=== PATIENT | male | born 1955 | race Caucasian/White ===

== ENCOUNTER 2018-05-09 07:47 | Day surgery (SDC) | payer MEDICARE ==
[~2018-05-09] VITALS: Ht 180.3 cm; Wt 107.4 kg
[2018-05-09] VITALS (18 sets, daily range): BP systolic 109–168; BP diastolic 56–110; Ht 180.3 cm; Wt 107.4 kg
[~2018-05-09 07:47] MED LIST: KEPPRA500 MG PO; NORVASC2.5 MG PO; PROZAC20 MG PO; TASIGNA PO
[2018-05-09 08:20] LABS: BASOPHILS 0.5 % (0-2); EOSINOPHILS 3.4 % (0-7); HEMATOCRIT 46.8 % (42.0-54.0); HEMOGLOBIN 16.2 g/dL (13.5-17.5); IMMATURE GRANULOCYTES 0.1 % (0-5); LYMPHOCYTES 17.1 % (15-50); MCH 30.8 pg (26.0-34.0); MCHC 34.6 g/dL (31.0-37.0); MEAN PLATELET VOLUME 11.3 fL (7.4-10.4); MONOCYTES 9.5 % (2-11); NEUTROPHILS 69.4 % (40-80); PLATELET COUNT 248 10x3/uL (130-400); RBC 5.26 10x6/uL (4.20-6.10); RDW 14.7 % (11.5-14.5); WBC 8.3 10x3/uL (4.8-10.8)
[2018-05-09 08:25] LABS: APTT 29.7 SECONDS (22.8-39.4); PROTIME 12.7 SECONDS (11.6-15.0)
[2018-05-09] MEDS ORDERED: SEROQUEL100 MG PO (14:48)
[2018-05-09] MEDS ORDERED: MINIPRESS2 MG PO (14:49)
[2018-05-10] VITALS (12 sets, daily range): BP systolic 85–153; BP diastolic 57–103
[2018-05-10] MEDS ORDERED: NORCO 10-325 TA1 TAB PO (10:49)
--- NOTE | 2018-06-04 10:06 | OP ---
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 SURGEON: Laurel Raymond MD DESCRIPTION OF TECHNIQUE: After induction of general endotracheal anesthesia, the patient was positioned supine on the operating table. Neck was prepped and draped in usual sterile fashion. Fluoroscopic x-ray and freer localized the C5-C6 interspace. After infiltration of 1:100,000 epinephrine with 1% lidocaine, a transverse skin incision was carried out from the midline to the sternocleidomastoid muscle. The platysma was divided with Bovie cautery. Using blunt and sharp dissection with Metzenbaum scissors, I proceeded in avascular plane medial to the carotid sheath. The C5-C6 and C6-C7 interspaces were identified with fluoroscopic x-ray and spinal needle. The longus colli muscles were elevated from the bodies of C5, C6, and C7. A self-retaining retractor was placed deep to the longus colli muscles. [place] distracting pins were placed by the C5, C6, and C7. Each disc space was incised with #11 blade. The disc material was removed with pituitary rongeurs and curettes. The bony endplates were exposed with curettes. Posteriorly, the osteophytes were removed with the Midas-Manuel drill and a microscope. The posterior longitudinal ligament was removed with Cloward rongeurs. Following this, the dura was decompressed well. PEEK interbody cages were placed in the interspace at C5-C6 and C6-C7. Prior to this, it was filled with Cele bone allograft. Next, anterior cervical plate and screws from [facility], which was a separate plate, was used to span the C5-C6 and C6-C7 interspaces. The screws were placed through the holes in the plate. Locking cams were tightened down over the screw heads. Good position of the hardware was confirmed with fluoroscopic x-ray. Meticulous hemostasis was maintained throughout the wound. Wound was irrigated with copious amounts of Ancef irrigant solution. The platysma and subdermal layer were closed with interrupted 3-0 Vicryl suture. The skin was reapproximated with Steri-Strips and benzoin. A sterile dressing was applied to the wound. The patient was awakened in good condition and taken to recovery. All counts were reported as correct. Estimated blood loss was minimal. Please note that Dr. Petty is the patient's primary care doctor in [place]. TRANSINT:[id number] Voice Confirmation ID: [id number] DOCUMENT ID: [id number] OPERATIVE REPORT [id number] KAITLYN LIM JOHN MD at 1006 CC: [id number] DICTATION DATE: 05/29/18 1426 BUSINESS TEST ANALYST: 05/29/18 1901 [facility] 05/10/[address] [facility] [address] [place] [address]
== END 2018-05-10 12:30 | disposition home or self-care (01) ==
LOC: D.ICU 07:47 → D.OPS 07:47 → D.PAN 09:00 → D.OPS 09:30 → D.PAN 09:30 → D.ICU 14:19 → D.OPS 05-10 12:30
PROVIDERS: Anesthesiology
DX: M50.122 Cervical disc disorder at C5-C6 level with radiculopathy (principal); M25.78 Osteophyte, vertebrae